=== PATIENT | male | born 1945 | race Caucasian/White ===

== ENCOUNTER 2017-01-03 17:30 | Inpatient (IN) | payer OTHER, MEDICARE ==
[~2017-01-03] VITALS: Ht 172.7 cm; Wt 53.7 kg
[~2017-01-03 17:30] MED LIST: ADVAIR 250/501 DISK IH; ALKA-SELTZER O1 EACH PO; CYMBALTA30 MG PO; DOXYCYCLINE HY100 MG PO; DUONEB 2.5-0.5 M3 ML AEROSOL; FIORICET 50-301 EACH PO; HYCODAN SYRUP480 ML PO; LEVAQUIN750 MG PO; MELATONIN5 M1 PO; MUCINEX FAST-M1 EAC2 PO; OMEGA 3 500 SO1 EACH PO; PREDNISONE10 MG PO; PROAIR HFA8.5 GM IH; RELPAX40 MG PO; SPIRIVA1 INHALATI IH; TAMSULOSIN HCL0.4 MG PO; VALSARTAN40 MG PO; VALSARTAN80 MG PO; VITAMIN D5000 UNIT PO; XANAX0.5 MG PO; ZOFRAN8 MG PO
[2017-01-03 19:11] LABS: BASE EXCESS 1.6 mEq/L (-3 to +3); BICARBONATE 24.4 mEq/L (22-26); CARBOXY HGB 1.6 % (0-5); METHEMOGLOBIN 1.2 % (0-1.5); PCO2 32 mm Hg (35-45); PO2 64 mm Hg (80-100); pH 7.49 (7.35-7.45)
[2017-01-03 19:12] LABS: COMMENTS - BLOOD GASES A+C+; DEVICE RA; SITE LR
[2017-01-03 19:23] LABS: ADD MIUA? YES; BILIRUBIN NEGATIVE; BLOOD SMALL; COLOR STRAW ((YELLOW)); GLUCOSE (STRIP) NEGATIVE; KETONES NEGATIVE; LEUKOCYTES NEGATIVE; NITRITE NEGATIVE; PROTEIN (STRIP) NEGATIVE; SPECIFIC GRAVITY 1.008 (1.000-1.030); UROBILINOGEN 0.2 MG/DL (0.2-1.0)
[2017-01-03 19:26] LABS: BACTERIA RARE /HPF; EPITHELIAL CELLS NONE SEEN /HPF; MUCUS TRACE /LPF; RED BLOOD CELLS 0-5 /HPF (0-5); UCUL ADDED? NO; WHITE BLOOD CELLS 0-5 /HPF (0-5)
[2017-01-03 19:46] LABS: EOSINOPHIL (%) 0 % (0-5); HEMATOCRIT 40.2 % (38.0-50.0); IMMATURE GRANULOCYTE (%) 0.4 % (0.0-0.7); IMMATURE GRANULOCYTE COUNT 0.1 K/uL; INSTRUMENT ABS NEUTROPHIL CT 12.1 K/uL; MCH 25.2 PG (29.0-34.0); MCHC 31.3 G/DL (30.0-36.0); MCV 80.4 FL (86-99); MONOCYTE (%) 6.6 % (3-12); MONOCYTE COUNT 0.9 K/uL (0-0.8); NEUTROPHIL (%) 85.7 % (45-76); NEUTROPHIL COUNT 12.1 K/uL (1.8-6.4); PLATELET COUNT 225 K/uL (156-360); RBC DIS.WIDTH-CV 14.9 % (11.8-14.6); WHITE BLOOD COUNT 14.1 K/uL (4.1-10.2)
[2017-01-03 19:56] LABS: CHLORIDE 102 mEq/L (99-109); SODIUM 138 mEq/L (136-147)
[2017-01-03 19:58] LABS: GLUCOSE 122 mg/dL (70-99)
[2017-01-03 19:59] LABS: ANION GAP 12 MEQ/L (2-14)
[2017-01-03 20:00] LABS: TOTAL BILIRUBIN 0.6 mg/dL (0.0-1.0)
[2017-01-03 20:01] LABS: ALKALINE PHOSPHATASE 66 IU/L (3-129)
[2017-01-03 20:02] LABS: GFR ESTIMATE (CALCULATED) > 59 mL/min/
[2017-01-03 20:03] LABS: UREA NITROGEN (BUN) 15 mg/dL (9-23)
[2017-01-03 20:09] LABS: TROP-I INTERPRETATION NEGATIVE; TROPONIN-I < 0.01 ng/mL (0.0-0.30)
[2017-01-03] MEDS ORDERED: SUMATRIPTAN SUC50 MG PO (21:15)
[2017-01-03 22:00] VITALS: BP 122/81
[2017-01-03 22:30] VITALS: BP 140/83
[2017-01-04 06:48] LABS: EOSINOPHIL (%) 0 % (0-5); HEMATOCRIT 36.6 % (38.0-50.0); IMMATURE GRANULOCYTE (%) 0.5 % (0.0-0.7); IMMATURE GRANULOCYTE COUNT 0.1 K/uL; INSTRUMENT ABS NEUTROPHIL CT 11.3 K/uL; LYMPHOCYTE COUNT 0.6 K/uL (1.0-2.8); MCH 25.3 PG (29.0-34.0); MCHC 31.4 G/DL (30.0-36.0); MCV 80.4 FL (86-99); MONOCYTE (%) 2.8 % (3-12); MONOCYTE COUNT 0.4 K/uL (0-0.8); NEUTROPHIL (%) 91.5 % (45-76); NEUTROPHIL COUNT 11.3 K/uL (1.8-6.4); PLATELET COUNT 206 K/uL (156-360); RBC DIS.WIDTH-CV 15.1 % (11.8-14.6); RBC DIS.WIDTH-SD 43.7 % (39-53); RED BLOOD COUNT 4.55 M/uL (4.00-5.50); WHITE BLOOD COUNT 12.4 K/uL (4.1-10.2)
[2017-01-04 07:12] LABS: ALKALINE PHOSPHATASE 56 IU/L (3-129); ANION GAP 10 MEQ/L (2-14); CHLORIDE 105 MEQ/L (99-109); GFR ESTIMATE (CALCULATED) > 59 mL/min/; GLUCOSE 143 mg/dL (70-99); SAMPLE HEMOLYSIS CHECK 0; SAMPLE ICTERIC CHECK 0; SAMPLE LIPEMIA CHECK 0; SODIUM 141 MEQ/L (136-147); TOTAL BILIRUBIN 0.5 MG/DL (0.0-1.0); UREA NITROGEN (BUN) 14 mg/dL (9-23)
[2017-01-04 08:14] VITALS: BP 105/72
[2017-01-04 08:28] LABS: INTERNAL CONTROL VALID? YES
[2017-01-04 12:27] VITALS: BP 96/65
[2017-01-04 15:16] LABS: INFLUENZA A VIRAL ANTIGEN NEGATIVE; INFLUENZA B VIRAL ANTIGEN NEGATIVE
[2017-01-04 15:17] VITALS: BP 96/51
[2017-01-05] VITALS: BP 107/67
[2017-01-05 07:42] VITALS: BP 125/73
[2017-01-05] MEDS ORDERED: PREDNISONE10 MG PO (09:19)
[2017-01-05] MEDS ORDERED: OMNICEF300 MG PO (09:19)
[2017-01-05] MEDS ORDERED: AZITHROMYCIN500 M1 PO (09:19)
[2017-01-07 17:18] LABS: Mycelial Phase Antibody <1:8 (<1:8); Yeast Phase Anitbody <1:8 (<1:8)
== END 2017-01-05 10:43 | disposition home or self-care (01) | DRG 190 ==
LOC: EME 17:30 → 4SOUTH 20:30 → EDOF 20:30 → 4SOUTH 22:17
PROVIDERS: Emergency Medicine; Internal Medicine
DX: J44.0 Chronic obstructive pulmonary disease with (acute) lower respiratory infection (principal); J18.9 Pneumonia, unspecified organism; J44.1 Chronic obstructive pulmonary disease with (acute) exacerbation; G43.909 Migraine, unspecified, not intractable, without status migrainosus; J45.909 Unspecified asthma, uncomplicated; I10 Essential (primary) hypertension; F32.9 Major depressive disorder, single episode, unspecified; I25.10 Atherosclerotic heart disease of native coronary artery without angina pectoris; Z95.5 Presence of coronary angioplasty implant and graft; K90.0 Celiac disease; Z87.891 Personal history of nicotine dependence
CPT/HCPCS: 36600; 70450; 71020; 80048; 80053; 81003; 82803; 83605; 83880; 84484; 85025; 86001 90; 86698 90; 87040; 87070; 87205; 87449; 87502; 93005; 94640; 94640 76; 99202; 99281; 99285; J0456; J0696; J1644; J2405; J2920; J2930; J3030; J7030; J7040; J7050; S0028

== ENCOUNTER 2017-03-29 02:02 | Emergency (ER) | payer OTHER, MEDICARE ==
[~2017-03-29] VITALS: Ht 172.7 cm; Wt 58.0 kg
[~2017-03-29 02:02] MED LIST changes: +AZITHROMYCIN500 M1 PO; +OMNICEF300 MG PO; +SUMATRIPTAN SUC50 MG PO
[2017-03-29 02:55] LABS: HEMATOCRIT 35.1 % (38.0-50.0); MCH 24.9 PG (29.0-34.0); MCHC 30.8 G/DL (30.0-36.0); MCV 80.9 FL (86-99); MEAN PLAT.VOLUME 9.7 uM^3 (9.0-12.4); PLATELET COUNT 262 K/uL (156-360); RBC DIS.WIDTH-CV 15.8 % (11.8-14.6); RBC DIS.WIDTH-SD 46.6 % (39-53); RED BLOOD COUNT 4.34 M/uL (4.00-5.50); WHITE BLOOD COUNT 8.9 K/uL (4.1-10.2)
[2017-03-29 03:07] LABS: CHLORIDE 102 mEq/L (99-109); POTASSIUM 3.8 mEq/L (3.7-5.4); SODIUM 139 mEq/L (136-147)
[2017-03-29 03:09] LABS: GLUCOSE 122 mg/dL (70-99)
[2017-03-29 03:10] LABS: ANION GAP 9 MEQ/L (2-14)
[2017-03-29 03:11] LABS: TOTAL BILIRUBIN 0.3 mg/dL (0.0-1.0)
[2017-03-29 03:13] LABS: ALKALINE PHOSPHATASE 58 IU/L (3-129); GFR ESTIMATE (CALCULATED) > 59 mL/min/
[2017-03-29 03:14] LABS: UREA NITROGEN (BUN) 26 mg/dL (9-23)
[2017-03-29 03:16] LABS: LIPASE 278 U/L (1.0-51.0)
[2017-03-29 03:45] LABS: ADD MIUA? YES; BILIRUBIN NEGATIVE; BLOOD LARGE; COLOR YELLOW ((YELLOW)); GLUCOSE (STRIP) NEGATIVE; KETONES NEGATIVE; LEUKOCYTES NEGATIVE; NITRITE NEGATIVE; PROTEIN (STRIP) NEGATIVE; SPECIFIC GRAVITY 1.013 (1.000-1.030); UROBILINOGEN 0.2 MG/DL (0.2-1.0)
[2017-03-29 03:54] LABS: BACTERIA NONE SEEN /HPF; EPITHELIAL CELLS NONE SEEN /HPF; MUCUS TRACE /LPF; RED BLOOD CELLS TNTC /HPF (0-5); UCUL ADDED? NO; WHITE BLOOD CELLS 0-5 /HPF (0-5)
[2017-03-29] MEDS ORDERED: FLOMAX0.4 MG PO (04:02)
[2017-03-29] MEDS ORDERED: CIPRO500 MG PO (04:02)
[2017-03-29] MEDS ORDERED: ZOFRAN8 MG PO (04:02)
[2017-03-29] MEDS ORDERED: PROMETHAZINE HC25 M1 PO (05:23)
[2017-03-29 05:26] VITALS: BP 141/89
== END 2017-03-29 05:27 | disposition home or self-care (01) ==
LOC: EME 02:02
PROVIDERS: Emergency Medicine
DX: N41.9 Inflammatory disease of prostate, unspecified (principal); R31.9 Hematuria, unspecified; K80.20 Calculus of gallbladder without cholecystitis without obstruction; D64.9 Anemia, unspecified; I10 Essential (primary) hypertension; J45.909 Unspecified asthma, uncomplicated; F32.9 Major depressive disorder, single episode, unspecified; Z95.1 Presence of aortocoronary bypass graft; Z88.6 Allergy status to analgesic agent; Z87.891 Personal history of nicotine dependence
CPT/HCPCS: 74176; 76705; 80053; 81003; 83605; 83690; 85027; 99281; 99284; J2270; J2405; J7030

== ENCOUNTER 2017-06-26 20:45 | Inpatient (IN) | payer OTHER, MEDICARE ==
[~2017-06-26] VITALS: Ht 175.3 cm; Wt 51.0 kg
[~2017-06-26 20:45] MED LIST changes: +CIPRO500 MG PO; +FLOMAX0.4 MG PO; +PROMETHAZINE HC25 M1 PO
[2017-06-26 21:31] LABS: HEMATOCRIT 39.6 % (38.0-50.0); MCH 24.7 PG (29.0-34.0); MCHC 31.1 G/DL (30.0-36.0); MCV 79.7 FL (86-99); MEAN PLAT.VOLUME 9.7 uM^3 (9.0-12.4); PLATELET COUNT 203 K/uL (156-360); RBC DIS.WIDTH-CV 18.9 % (11.8-14.6); RBC DIS.WIDTH-SD 53.6 % (39-53); RED BLOOD COUNT 4.97 M/uL (4.00-5.50); WHITE BLOOD COUNT 8.3 K/uL (4.1-10.2)
[2017-06-26 21:39] LABS: CHLORIDE 107 mEq/L (99-109); POTASSIUM 4.1 mEq/L (3.7-5.4); SODIUM 145 mEq/L (136-147)
[2017-06-26 21:41] LABS: GLUCOSE 117 mg/dL (70-99)
[2017-06-26 21:43] LABS: ANION GAP 13 MEQ/L (2-14)
[2017-06-26 21:45] LABS: GFR ESTIMATE (CALCULATED) > 59 mL/min/
[2017-06-26 21:46] LABS: UREA NITROGEN (BUN) 17 mg/dL (9-23)
[2017-06-26 21:53] LABS: TROP-I INTERPRETATION NEGATIVE; TROPONIN-I < 0.01 ng/mL (0.0-0.30)
[2017-06-26] MEDS ORDERED: FLOMAX0.4 MG PO (23:29)
[2017-06-26] MEDS ORDERED: PREDNISONE5 MG PO (23:30)
[2017-06-27] VITALS (7 sets, daily range): BP systolic 80–172; BP diastolic 53–103
[2017-06-27 07:34] LABS: PROTHROMBIN TIME 11.4 SEC (10.2-12.9)
[2017-06-27 07:37] LABS: PTT 30.3 SEC (25-37)
[2017-06-27 09:38] LABS: HEMATOCRIT 40.3 % (38.0-50.0); MCH 25.5 PG (29.0-34.0); MCHC 31.5 G/DL (30.0-36.0); MCV 80.9 FL (86-99); MEAN PLAT.VOLUME 10.4 uM^3 (9.0-12.4); PLATELET COUNT 212 K/uL (156-360); RBC DIS.WIDTH-CV 19.5 % (11.8-14.6); RBC DIS.WIDTH-SD 55.8 % (39-53); RED BLOOD COUNT 4.98 M/uL (4.00-5.50); WHITE BLOOD COUNT 9.8 K/uL (4.1-10.2)
[2017-06-27 09:47] LABS: ANION GAP 9 MEQ/L (2-14); CHLORIDE 104 MEQ/L (99-109); GFR ESTIMATE (CALCULATED) > 59 mL/min/; GLUCOSE 106 mg/dL (70-99); POTASSIUM 4.3 MEQ/L (3.7-5.4); SAMPLE HEMOLYSIS CHECK 0; SAMPLE ICTERIC CHECK 0; SAMPLE LIPEMIA CHECK 0; SODIUM 143 MEQ/L (136-147); UREA NITROGEN (BUN) 12 mg/dL (9-23)
[2017-06-28] VITALS (7 sets, daily range): BP systolic 92–155; BP diastolic 62–89
[2017-06-28 05:04] LABS: HEMATOCRIT 41.2 % (38.0-50.0); MCH 24.2 PG (29.0-34.0); MCHC 31.1 G/DL (30.0-36.0); MCV 77.9 FL (86-99); MEAN PLAT.VOLUME 9.8 uM^3 (9.0-12.4); PLATELET COUNT 194 K/uL (156-360); RBC DIS.WIDTH-CV 18.6 % (11.8-14.6); RBC DIS.WIDTH-SD 50.8 % (39-53); RED BLOOD COUNT 5.29 M/uL (4.00-5.50); WHITE BLOOD COUNT 10.1 K/uL (4.1-10.2)
[2017-06-28 05:29] LABS: ANION GAP 13 MEQ/L (2-14); CHLORIDE 100 MEQ/L (99-109); GFR ESTIMATE (CALCULATED) > 59 mL/min/; GLUCOSE 138 mg/dL (70-99); POTASSIUM 4.3 MEQ/L (3.7-5.4); SAMPLE HEMOLYSIS CHECK 0; SAMPLE ICTERIC CHECK 0; SAMPLE LIPEMIA CHECK 0; SODIUM 139 MEQ/L (136-147); UREA NITROGEN (BUN) 20 mg/dL (9-23)
[2017-06-29 05:56] VITALS: BP 112/72
[2017-06-29 07:15] VITALS: BP 113/75
[2017-06-29 07:21] LABS: MCH 25.7 PG (29.0-34.0); MCHC 32.6 G/DL (30.0-36.0); MCV 78.9 FL (86-99); MEAN PLAT.VOLUME 10.7 uM^3 (9.0-12.4); PLATELET COUNT 215 K/uL (156-360); RBC DIS.WIDTH-CV 18.8 % (11.8-14.6); RBC DIS.WIDTH-SD 51.7 % (39-53); RED BLOOD COUNT 4.94 M/uL (4.00-5.50); WHITE BLOOD COUNT 13.1 K/uL (4.1-10.2)
[2017-06-29 07:45] LABS: ANION GAP 10 MEQ/L (2-14); CHLORIDE 96 MEQ/L (99-109); GFR ESTIMATE (CALCULATED) > 59 mL/min/; GLUCOSE 112 mg/dL (70-99); POTASSIUM 4.4 MEQ/L (3.7-5.4); SAMPLE HEMOLYSIS CHECK 0; SAMPLE ICTERIC CHECK 0; SAMPLE LIPEMIA CHECK 0; SODIUM 138 MEQ/L (136-147); UREA NITROGEN (BUN) 32 mg/dL (9-23)
[2017-06-29 07:51] LABS: EOSINOPHIL (%) 0 % (0-5); IMMATURE GRANULOCYTE (%) 0.6 % (0.0-0.7); IMMATURE GRANULOCYTE COUNT 0.1 K/uL; INSTRUMENT ABS NEUTROPHIL CT 11.1 K/uL; LYMPHOCYTE COUNT 1.2 K/uL (1.0-2.8); MONOCYTE (%) 5.7 % (3-12); MONOCYTE COUNT 0.8 K/uL (0-0.8); NEUTROPHIL (%) 84.5 % (45-76); NEUTROPHIL COUNT 11.1 K/uL (1.8-6.4)
[2017-06-29 11:54] VITALS: BP 100/66
[2017-06-29 15:50] VITALS: BP 100/71
[2017-06-29 19:16] VITALS: BP 132/77
[2017-06-29 23:13] VITALS: BP 125/70
[2017-06-30 05:30] VITALS: BP 129/82
[2017-06-30 06:23] LABS: EOSINOPHIL (%) 0.1 % (0-5); HEMATOCRIT 40.1 % (38.0-50.0); IMMATURE GRANULOCYTE (%) 0.9 % (0.0-0.7); IMMATURE GRANULOCYTE COUNT 0.1 K/uL; INSTRUMENT ABS NEUTROPHIL CT 7.7 K/uL; LYMPHOCYTE COUNT 0.8 K/uL (1.0-2.8); MCH 25.1 PG (29.0-34.0); MCHC 32.2 G/DL (30.0-36.0); MCV 78.2 FL (86-99); MONOCYTE (%) 7.6 % (3-12); MONOCYTE COUNT 0.7 K/uL (0-0.8); NEUTROPHIL (%) 82.4 % (45-76); NEUTROPHIL COUNT 7.7 K/uL (1.8-6.4); PLATELET COUNT 231 K/uL (156-360); RBC DIS.WIDTH-CV 18.6 % (11.8-14.6); RBC DIS.WIDTH-SD 51.3 % (39-53); RED BLOOD COUNT 5.13 M/uL (4.00-5.50); WHITE BLOOD COUNT 9.3 K/uL (4.1-10.2)
[2017-06-30 06:45] LABS: ANION GAP 11 MEQ/L (2-14); CHLORIDE 96 MEQ/L (99-109); GFR ESTIMATE (CALCULATED) > 59 mL/min/; GLUCOSE 113 mg/dL (70-99); SAMPLE HEMOLYSIS CHECK 0; SAMPLE ICTERIC CHECK 0; SAMPLE LIPEMIA CHECK 0; SODIUM 134 MEQ/L (136-147); UREA NITROGEN (BUN) 31 mg/dL (9-23)
[2017-06-30 07:28] VITALS: BP 132/87
[2017-06-30 11:49] VITALS: BP 102/65
[2017-06-30 15:30] VITALS: BP 90/65
[2017-06-30 19:36] VITALS: BP 118/70
[2017-06-30 22:50] VITALS: BP 119/59
[2017-07-01 03:34] VITALS: BP 91/63
[2017-07-01 06:23] LABS: ANION GAP 10 MEQ/L (2-14); CHLORIDE 98 MEQ/L (99-109); GFR ESTIMATE (CALCULATED) > 59 mL/min/; GLUCOSE 114 mg/dL (70-99); POTASSIUM 4.5 MEQ/L (3.7-5.4); SAMPLE HEMOLYSIS CHECK 0; SAMPLE ICTERIC CHECK 0; SAMPLE LIPEMIA CHECK 0; SODIUM 135 MEQ/L (136-147); UREA NITROGEN (BUN) 34 mg/dL (9-23)
[2017-07-01 06:25] LABS: EOSINOPHIL (%) 0 % (0-5); HEMATOCRIT 33.4 % (38.0-50.0); IMMATURE GRANULOCYTE (%) 0.5 % (0.0-0.7); INSTRUMENT ABS NEUTROPHIL CT 6.9 K/uL; LYMPHOCYTE COUNT 0.9 K/uL (1.0-2.8); MCH 24.8 PG (29.0-34.0); MCHC 31.7 G/DL (30.0-36.0); MEAN PLAT.VOLUME 10.3 uM^3 (9.0-12.4); MONOCYTE (%) 8.5 % (3-12); MONOCYTE COUNT 0.7 K/uL (0-0.8); NEUTROPHIL (%) 79.9 % (45-76); NEUTROPHIL COUNT 6.9 K/uL (1.8-6.4); PLATELET COUNT 211 K/uL (156-360); RBC DIS.WIDTH-SD 50.5 % (39-53); RED BLOOD COUNT 4.28 M/uL (4.00-5.50); WHITE BLOOD COUNT 8.6 K/uL (4.1-10.2)
[2017-07-01 07:30] VITALS: BP 110/69
[2017-07-01 11:01] VITALS: BP 110/64
[2017-07-01 16:20] VITALS: BP 109/72
[2017-07-01 19:30] VITALS: BP 100/66
[2017-07-01 23:59] VITALS: BP 115/77
[2017-07-02 04:03] VITALS: BP 98/68
[2017-07-02 05:36] LABS: EOSINOPHIL (%) 0 % (0-5); HEMATOCRIT 33.7 % (38.0-50.0); IMMATURE GRANULOCYTE (%) 0.3 % (0.0-0.7); INSTRUMENT ABS NEUTROPHIL CT 5.2 K/uL; LYMPHOCYTE COUNT 0.8 K/uL (1.0-2.8); MCH 24.6 PG (29.0-34.0); MCHC 31.5 G/DL (30.0-36.0); MCV 78.2 FL (86-99); MEAN PLAT.VOLUME 10.4 uM^3 (9.0-12.4); MONOCYTE (%) 10.8 % (3-12); MONOCYTE COUNT 0.7 K/uL (0-0.8); NEUTROPHIL (%) 77.4 % (45-76); NEUTROPHIL COUNT 5.2 K/uL (1.8-6.4); PLATELET COUNT 239 K/uL (156-360); RBC DIS.WIDTH-CV 17.8 % (11.8-14.6); RBC DIS.WIDTH-SD 50.6 % (39-53); RED BLOOD COUNT 4.31 M/uL (4.00-5.50); WHITE BLOOD COUNT 6.7 K/uL (4.1-10.2)
[2017-07-02 06:06] LABS: ANION GAP 11 MEQ/L (2-14); CHLORIDE 95 MEQ/L (99-109); GFR ESTIMATE (CALCULATED) > 59 mL/min/; GLUCOSE 100 mg/dL (70-99); POTASSIUM 3.8 MEQ/L (3.7-5.4); SAMPLE HEMOLYSIS CHECK 0; SAMPLE ICTERIC CHECK 0; SAMPLE LIPEMIA CHECK 0; SODIUM 133 MEQ/L (136-147); UREA NITROGEN (BUN) 28 mg/dL (9-23)
[2017-07-02 07:30] VITALS: BP 100/68
[2017-07-02 09:05] LABS: BILIRUBIN NEGATIVE; BLOOD NEGATIVE; COLOR YELLOW ((YELLOW)); GLUCOSE (STRIP) NEGATIVE; KETONES NEGATIVE; LEUKOCYTES NEGATIVE; NITRITE NEGATIVE; PROTEIN (STRIP) NEGATIVE; SPECIFIC GRAVITY 1.021 (1.000-1.030); UROBILINOGEN 0.2 MG/DL (0.2-1.0)
[2017-07-02 09:06] LABS: ADD MIUA? NO; UCUL ADDED? NO
[2017-07-02 11:30] VITALS: BP 114/66
[2017-07-02 15:30] VITALS: BP 113/79
[2017-07-02 19:10] VITALS: BP 122/76
[2017-07-02 23:39] VITALS: BP 118/81
[2017-07-03 05:02] VITALS: BP 127/79
[2017-07-03 05:08] LABS: HEMATOCRIT 34.6 % (38.0-50.0); MCH 25.8 PG (29.0-34.0); MCHC 32.7 G/DL (30.0-36.0); MEAN PLAT.VOLUME 10.8 uM^3 (9.0-12.4); PLATELET COUNT 261 K/uL (156-360); RBC DIS.WIDTH-CV 17.9 % (11.8-14.6); RBC DIS.WIDTH-SD 50.9 % (39-53); RED BLOOD COUNT 4.38 M/uL (4.00-5.50); WHITE BLOOD COUNT 7.7 K/uL (4.1-10.2)
[2017-07-03 05:40] LABS: ANION GAP 12 MEQ/L (2-14); CHLORIDE 98 MEQ/L (99-109); GFR ESTIMATE (CALCULATED) > 59 mL/min/; GLUCOSE 98 mg/dL (70-99); POTASSIUM 4.3 MEQ/L (3.7-5.4); SAMPLE HEMOLYSIS CHECK 0; SAMPLE ICTERIC CHECK 0; SAMPLE LIPEMIA CHECK 0; SODIUM 136 MEQ/L (136-147); UREA NITROGEN (BUN) 25 mg/dL (9-23)
[2017-07-03 07:27] VITALS: BP 124/83
[2017-07-03 11:11] VITALS: BP 109/76
[2017-07-03 13:00] LABS: MAGNESIUM 2.2 mg/dl (1.3-2.7)
[2017-07-03 14:15] LABS: TROP-I INTERPRETATION NEGATIVE; TROPONIN-I 0.07 ng/mL (0.0-0.30)
[2017-07-03 16:30] VITALS: BP 104/63
[2017-07-03 18:34] LABS: TROP-I INTERPRETATION NEGATIVE; TROPONIN-I 0.06 ng/mL (0.0-0.30)
[2017-07-03 20:10] VITALS: BP 117/77
[2017-07-04 00:45] VITALS: BP 100/69
[2017-07-04 01:01] LABS: TROP-I INTERPRETATION NEGATIVE; TROPONIN-I 0.06 ng/mL (0.0-0.30)
[2017-07-04 04:49] VITALS: BP 120/80
[2017-07-04 08:30] VITALS: BP 132/89
[2017-07-04] MEDS ORDERED: ATROVENT 00.5 MG/2.5 IH (10:19)
[2017-07-04] MEDS ORDERED: METOPROLOL SUCC25 MG PO (10:19)
[2017-07-04] MEDS ORDERED: LEVALBUTER1.25 MG/3 IH (10:19)
[2017-07-04] MEDS ORDERED: TRAMADOL HCL50 MG PO (11:09)
== END 2017-07-04 12:53 | disposition home health service (06) | DRG 199 ==
LOC: EME 20:45 → EDOF 06-27 01:56 → 4EAST 06-27 01:56 → ENRESERV 06-27 01:57 → 4EAST 06-27 03:23 → ENPENDDIS 07-04 → 4EAST 07-04 12:53
PROVIDERS: Emergency Medicine; Hospitalist; Internal Medicine; Physician Assistant; Radiology Diagnostic Radiology
PROC: 0W9930Z Drainage of Right Pleural Cavity with Drainage Device, Percutaneous Approach (ICD-10-PCS; principal; 2017-06-27)
DX: S27.0XXA Traumatic pneumothorax, initial encounter (principal); J15.9 Unspecified bacterial pneumonia; S22.41XA Multiple fractures of ribs, right side, initial encounter for closed fracture; Z68.1 Body mass index [BMI] 19.9 or less, adult; R64 Cachexia; W01.0XXA Fall on same level from slipping, tripping and stumbling without subsequent striking against object, initial encounter; J98.11 Atelectasis; J44.0 Chronic obstructive pulmonary disease with (acute) lower respiratory infection; R29.6 Repeated falls; I49.3 Ventricular premature depolarization; K59.00 Constipation, unspecified; I71.2 Thoracic aortic aneurysm, without rupture; I73.9 Peripheral vascular disease, unspecified; I25.10 Atherosclerotic heart disease of native coronary artery without angina pectoris; I10 Essential (primary) hypertension; G43.909 Migraine, unspecified, not intractable, without status migrainosus; Z86.79 Personal history of other diseases of the circulatory system; Z98.62 Peripheral vascular angioplasty status; Z87.891 Personal history of nicotine dependence; Z87.01 Personal history of pneumonia (recurrent)
CPT/HCPCS: 32557; 70450; 71010; 71020; 71250; 80048; 81003; 83735; 84484; 85025; 85027; 85610; 85730; 93005; 94010; 94640; 94640 76; 94667; 94668; 94799; 97530 GO; 99202; 99281; 99285; C1729; C1769; J1170; J1200; J1644; J2270; J2765; J3010; J7030; J7512

== ENCOUNTER 2017-07-06 11:00 | Inpatient (IN) | payer OTHER, MEDICARE ==
[~2017-07-06] VITALS: Ht 172.7 cm; Wt 50.1 kg
[~2017-07-06 11:00] MED LIST changes: +ATROVENT 00.5 MG/2.5 IH; +LEVALBUTER1.25 MG/3 IH; +METOPROLOL SUCC25 MG PO; +PREDNISONE5 MG PO; +TRAMADOL HCL50 MG PO
[2017-07-06 11:41] LABS: HEMATOCRIT 34.2 % (38.0-50.0); MCH 24.7 PG (29.0-34.0); MCHC 31.6 G/DL (30.0-36.0); MCV 78.3 FL (86-99); MEAN PLAT.VOLUME 9.5 uM^3 (9.0-12.4); RBC DIS.WIDTH-CV 17.6 % (11.8-14.6); RBC DIS.WIDTH-SD 49.9 % (39-53); RED BLOOD COUNT 4.37 M/uL (4.00-5.50); WHITE BLOOD COUNT 15.1 K/uL (4.1-10.2)
[2017-07-06 11:43] LABS: PLATELET COUNT 427 K/uL (156-360)
[2017-07-06 11:46] LABS: CHLORIDE 104 mEq/L (99-109); POTASSIUM 3.9 mEq/L (3.7-5.4); SODIUM 138 mEq/L (136-147)
[2017-07-06 11:48] LABS: GLUCOSE 102 mg/dL (70-99)
[2017-07-06 11:49] LABS: ANION GAP 7 MEQ/L (2-14)
[2017-07-06 11:52] LABS: GFR ESTIMATE (CALCULATED) > 59 mL/min/
[2017-07-06 11:53] LABS: UREA NITROGEN (BUN) 20 mg/dL (9-23)
[2017-07-06 11:54] LABS: CREATINE KINASE 21 IU/L (1-294)
[2017-07-06 12:56] LABS: BILIRUBIN NEGATIVE; BLOOD NEGATIVE; COLOR YELLOW ((YELLOW)); GLUCOSE (STRIP) NEGATIVE; KETONES NEGATIVE; LEUKOCYTES NEGATIVE; NITRITE NEGATIVE; PROTEIN (STRIP) NEGATIVE; UROBILINOGEN 0.2 MG/DL (0.2-1.0)
[2017-07-06 13:01] LABS: ADD MIUA? NO
[2017-07-06 16:09] VITALS: BP 107/71
[2017-07-06 19:19] VITALS: BP 116/75
[2017-07-06 23:32] VITALS: BP 123/76
[2017-07-07 00:05] LABS: TROP-I INTERPRETATION NEGATIVE; TROPONIN-I 0.02 ng/mL (0.0-0.30)
[2017-07-07 04:22] VITALS: BP 125/78
[2017-07-07 07:30] LABS: TROP-I INTERPRETATION NEGATIVE; TROPONIN-I 0.01 ng/mL (0.0-0.30)
[2017-07-07 07:39] LABS: ALKALINE PHOSPHATASE 79 IU/L (3-129); ANION GAP 10 MEQ/L (2-14); CHLORIDE 97 MEQ/L (99-109); GFR ESTIMATE (CALCULATED) > 59 mL/min/; GLUCOSE 107 mg/dL (70-99); POTASSIUM 4.5 MEQ/L (3.7-5.4); SAMPLE HEMOLYSIS CHECK 0; SAMPLE ICTERIC CHECK 0; SAMPLE LIPEMIA CHECK 0; SODIUM 135 MEQ/L (136-147); TOTAL BILIRUBIN 0.5 MG/DL (0.0-1.0); UREA NITROGEN (BUN) 18 mg/dL (9-23)
[2017-07-07 07:42] VITALS: BP 120/80
[2017-07-07 17:59] VITALS: BP 114/66
[2017-07-07 20:19] VITALS: BP 105/67
[2017-07-07 23:54] VITALS: BP 114/70
[2017-07-08 04:12] VITALS: BP 113/71
[2017-07-08 06:48] LABS: MCV 79.8 FL (86-99)
[2017-07-08 08:20] VITALS: BP 112/73
[2017-07-08 08:30] LABS: MCH 26.3 PG (29.0-34.0); MCHC 32.6 G/DL (30.0-36.0); MEAN PLAT.VOLUME 10.3 uM^3 (9.0-12.4); PLATELET COUNT 492 K/uL (156-360); RBC DIS.WIDTH-CV 18.4 % (11.8-14.6); RBC DIS.WIDTH-SD 53.1 % (39-53); WHITE BLOOD COUNT 13.9 K/uL (4.1-10.2)
[2017-07-08 08:33] LABS: ANION GAP 10 MEQ/L (2-14); CHLORIDE 101 MEQ/L (99-109); POTASSIUM 5.1 MEQ/L (3.7-5.4); SAMPLE HEMOLYSIS CHECK 1; SAMPLE ICTERIC CHECK 0; SAMPLE LIPEMIA CHECK 0; SODIUM 138 MEQ/L (136-147)
[2017-07-08 08:38] LABS: GFR ESTIMATE (CALCULATED) > 59 mL/min/; GLUCOSE 155 mg/dL (70-99); UREA NITROGEN (BUN) 18 mg/dL (9-23)
[2017-07-08 10:40] LABS: INTERNAL CONTROL VALID? YES
[2017-07-08 16:00] VITALS: BP 102/68
[2017-07-08 20:53] VITALS: BP 105/70
[2017-07-09] VITALS (7 sets, daily range): BP systolic 109–133; BP diastolic 71–86
[2017-07-09 06:42] LABS: HEMATOCRIT 29.3 % (38.0-50.0); MCV 79.8 FL (86-99)
[2017-07-10 03:29] VITALS: BP 136/86
[2017-07-10 06:34] LABS: HEMATOCRIT 33.3 % (38.0-50.0); MCH 24.6 PG (29.0-34.0); MCHC 30.3 G/DL (30.0-36.0); MCV 81.2 FL (86-99); MEAN PLAT.VOLUME 9.8 uM^3 (9.0-12.4); RBC DIS.WIDTH-CV 18.4 % (11.8-14.6); RBC DIS.WIDTH-SD 53.2 % (39-53); WHITE BLOOD COUNT 11.1 K/uL (4.1-10.2)
[2017-07-10 06:36] LABS: PLATELET COUNT 652 K/uL (156-360)
[2017-07-10 06:42] LABS: GFR ESTIMATE (CALCULATED) > 59 mL/min/; UREA NITROGEN (BUN) 19 mg/dL (9-23)
[2017-07-10 06:46] LABS: ANION GAP 6 MEQ/L (2-14); CHLORIDE 98 MEQ/L (99-109); GFR ESTIMATE (CALCULATED) > 59 mL/min/; POTASSIUM 4.7 MEQ/L (3.7-5.4); SAMPLE HEMOLYSIS CHECK 0; SAMPLE ICTERIC CHECK 0; SAMPLE LIPEMIA CHECK 0; SODIUM 139 MEQ/L (136-147); UREA NITROGEN (BUN) 19 mg/dL (9-23)
[2017-07-10 06:48] LABS: GLUCOSE 78 mg/dL (70-99)
[2017-07-10 07:33] VITALS: BP 135/91
[2017-07-10 11:42] VITALS: BP 114/75
[2017-07-10 15:31] VITALS: BP 103/50
[2017-07-10 19:27] VITALS: BP 105/69
[2017-07-10 23:38] VITALS: BP 121/82
[2017-07-11 03:28] VITALS: BP 131/95
[2017-07-11 06:39] LABS: HEMATOCRIT 31.5 % (38.0-50.0); MCH 26.1 PG (29.0-34.0); MCHC 32.4 G/DL (30.0-36.0); MCV 80.6 FL (86-99); MEAN PLAT.VOLUME 9.9 uM^3 (9.0-12.4); PLATELET COUNT 603 K/uL (156-360); RBC DIS.WIDTH-CV 18.6 % (11.8-14.6); RED BLOOD COUNT 3.91 M/uL (4.00-5.50); WHITE BLOOD COUNT 11.8 K/uL (4.1-10.2)
[2017-07-11 07:06] LABS: ANION GAP 9 MEQ/L (2-14); CHLORIDE 99 MEQ/L (99-109); GFR ESTIMATE (CALCULATED) > 59 mL/min/; GLUCOSE 80 mg/dL (70-99); POTASSIUM 4.4 MEQ/L (3.7-5.4); SAMPLE HEMOLYSIS CHECK 0; SAMPLE ICTERIC CHECK 0; SAMPLE LIPEMIA CHECK 0; SODIUM 139 MEQ/L (136-147); UREA NITROGEN (BUN) 19 mg/dL (9-23)
[2017-07-11 08:43] VITALS: BP 124/83
[2017-07-11] MEDS ORDERED: LOVENOX40 MG/0.4 SC (10:13)
[2017-07-11] MEDS ORDERED: THERAGRAN1 TABLET PO (10:13)
[2017-07-11] MEDS ORDERED: PREDNISONE10 MG PO (10:13)
[2017-07-11] MEDS ORDERED: MYCOSTATIN 100,60 ML PO (10:13)
[2017-07-11] MEDS ORDERED: FLORASTOR250 MG PO (10:13)
[2017-07-11] MEDS ORDERED: LIDOCAINE20 MG/1 M5 PO (10:50)
[2017-07-11] MEDS ORDERED: AUGMENTIN875 MG PO (12:03)
[2017-07-11 12:12] VITALS: BP 93/64
== END 2017-07-11 14:26 | disposition home health service (06) | DRG 480 ==
LOC: EME → EDBD 11:00 → EME 11:00 → 3EAST 14:05 → EDOF 14:05 → ENRESERV 14:07 → EDOF 14:16 → ENRESERV 14:46 → 3EAST 15:11
PROVIDERS: Hospitalist; Internal Medicine; Internal Medicine Cardiovascular Disease; Orthopaedic Surgery; Physician Assistant
PROC: 0QH606Z Insertion of Intramedullary Internal Fixation Device into Right Upper Femur, Open Approach (ICD-10-PCS; principal; 2017-07-07)
DX: S72.144A Nondisplaced intertrochanteric fracture of right femur, initial encounter for closed fracture (principal); E44.0 Moderate protein-calorie malnutrition; J44.1 Chronic obstructive pulmonary disease with (acute) exacerbation; J69.0 Pneumonitis due to inhalation of food and vomit; D64.89 Other specified anemias; I10 Essential (primary) hypertension; I71.2 Thoracic aortic aneurysm, without rupture; I73.9 Peripheral vascular disease, unspecified; J98.11 Atelectasis; K21.9 Gastro-esophageal reflux disease without esophagitis; K90.0 Celiac disease; R13.10 Dysphagia, unspecified; W18.30XA Fall on same level, unspecified, initial encounter; Y92.009 Unspecified place in unspecified non-institutional (private) residence as the place of occurrence of the external cause; Z91.81 History of falling; Z68.1 Body mass index [BMI] 19.9 or less, adult; Z87.891 Personal history of nicotine dependence; Z95.1 Presence of aortocoronary bypass graft; Z87.01 Personal history of pneumonia (recurrent)
CPT/HCPCS: 71010; 71020; 71275; 73502; 76000; 80048; 80053; 80200; 80202; 81003; 82550; 82565; 84484; 84520; 85014; 85018; 85027; 85730; 86850; 86900; 86901; 87040; 87070; 87205; 87449; 87651 90; 92526 GN; 92610 GN; 93005; 93970; 94010; 94640; 94640 76; 94667; 94668; 94760; 94799; 97530 GO; 99202; 99281; 99285; C1713; J0295; J0690; J0692; J1650; J2250; J2270; J2405; J2704; J2930; J3010; J3260; J3370; J7030; J7050; J7120; J7512

== ENCOUNTER 2017-07-26 13:21 | Inpatient (IN) | payer OTHER, MEDICARE ==
[~2017-07-26] VITALS: Ht 172.7 cm; Wt 46.7 kg
[~2017-07-26 13:21] MED LIST changes: +AUGMENTIN875 MG PO; +FLORASTOR250 MG PO; +LIDOCAINE20 MG/1 M5 PO; +LOVENOX40 MG/0.4 SC; +MYCOSTATIN 100,60 ML PO; +THERAGRAN1 TABLET PO
[2017-07-26 13:57] LABS: BILIRUBIN NEGATIVE; BLOOD NEGATIVE; COLOR YELLOW ((YELLOW)); GLUCOSE (STRIP) NEGATIVE; KETONES NEGATIVE; LEUKOCYTES NEGATIVE; NITRITE NEGATIVE; PROTEIN (STRIP) NEGATIVE; SPECIFIC GRAVITY 1.024 (1.000-1.030); UROBILINOGEN 0.2 MG/DL (0.2-1.0)
[2017-07-26 13:59] LABS: ADD MIUA? NO
[2017-07-26 14:15] LABS: CHLORIDE 105 mEq/L (99-109); POTASSIUM 3.7 mEq/L (3.7-5.4); SODIUM 143 mEq/L (136-147)
[2017-07-26 14:16] LABS: HEMATOCRIT 37.6 % (38.0-50.0); MCH 25.7 PG (29.0-34.0); MCHC 30.6 G/DL (30.0-36.0); MCV 83.9 FL (86-99); RBC DIS.WIDTH-CV 20.1 % (11.8-14.6); RBC DIS.WIDTH-SD 60.7 % (39-53); RED BLOOD COUNT 4.48 M/uL (4.00-5.50); WHITE BLOOD COUNT 9.1 K/uL (4.1-10.2)
[2017-07-26 14:17] LABS: GLUCOSE 96 mg/dL (70-99)
[2017-07-26 14:18] LABS: ANION GAP 14 MEQ/L (2-14)
[2017-07-26 14:21] LABS: GFR ESTIMATE (CALCULATED) > 59 mL/min/
[2017-07-26 14:22] LABS: UREA NITROGEN (BUN) 15 mg/dL (9-23)
[2017-07-26 15:02] LABS: PLAT.SUFFICIENCY ADEQUATE; PLATELET COUNT 357 K/uL (156-360)
[2017-07-26 15:54] LABS: UCUL ADDED? NO
[2017-07-26] MEDS ORDERED: PROAIR HFA8.5 GM IH (19:32)
[2017-07-26] MEDS ORDERED: ENDOCET 5-3251 EACH PO (19:33)
[2017-07-26] MEDS ORDERED: PROMETHAZINE HC25 M1 PO (19:34)
[2017-07-26 20:56] LABS: BASOPHIL COUNT 0.1 K/uL (0-0.1); EOSINOPHIL (%) 3.6 % (0-5); EOSINOPHIL COUNT 0.3 K/uL (0-0.3); IMMATURE GRANULOCYTE (%) 0.3 % (0.0-0.7); INSTRUMENT ABS NEUTROPHIL CT 6.7 K/uL; LYMPHOCYTE COUNT 1.4 K/uL (1.0-2.8); MONOCYTE (%) 5.2 % (3-12); MONOCYTE COUNT 0.5 K/uL (0-0.8); NEUTROPHIL (%) 74.5 % (45-76); NEUTROPHIL COUNT 6.7 K/uL (1.8-6.4)
[2017-07-26 22:46] VITALS: BP 101/68
[2017-07-27 07:32] VITALS: BP 110/70
[2017-07-27 16:42] VITALS: BP 112/68
[2017-07-27 22:46] VITALS: BP 121/57
[2017-07-28 07:22] VITALS: BP 130/85
[2017-07-28 17:44] VITALS: BP 109/68
[2017-07-28 22:48] VITALS: BP 128/78
[2017-07-29 08:12] VITALS: BP 119/74
[2017-07-29] MEDS ORDERED: CEFTIN500 MG PO (11:48)
[2017-07-29] MEDS ORDERED: PREDNISONE10 MG PO (11:48)
== END 2017-07-29 13:56 | disposition home or self-care (01) | DRG 177 ==
LOC: EME 13:21 → EDOF 19:45 → 5EAST 19:45 → ENRESERV 19:48 → 5EAST 22:38 → ENPENDDIS 07-29 → 5EAST 07-29 13:56
DX: J69.0 Pneumonitis due to inhalation of food and vomit (principal); J44.1 Chronic obstructive pulmonary disease with (acute) exacerbation; E43 Unspecified severe protein-calorie malnutrition; I27.81 Cor pulmonale (chronic); D64.9 Anemia, unspecified; I10 Essential (primary) hypertension; F32.9 Major depressive disorder, single episode, unspecified; I71.2 Thoracic aortic aneurysm, without rupture; K90.0 Celiac disease; M25.552 Pain in left hip; M54.9 Dorsalgia, unspecified; R10.9 Unspecified abdominal pain; R13.10 Dysphagia, unspecified; F41.9 Anxiety disorder, unspecified; R29.6 Repeated falls; Z91.11 Patient's noncompliance with dietary regimen; Z68.1 Body mass index [BMI] 19.9 or less, adult; Z86.711 Personal history of pulmonary embolism; Z87.891 Personal history of nicotine dependence; Z91.19 Patient's noncompliance with other medical treatment and regimen; Z99.81 Dependence on supplemental oxygen; Z88.5 Allergy status to narcotic agent
CPT/HCPCS: 71010; 71020; 71275; 74177; 74230; 80048; 81003; 83605; 85025; 85027; 87040; 92611 GN; 94640; 94640 76; 94799; 99202; 99281; 99283; J0295; J1956; J2920; J7050

== ENCOUNTER → 2017-10-23 | Outpatient (CLI) | payer MEDICARE ==
[~2017-10-23] MED LIST changes: +CEFTIN500 MG PO; +ENDOCET 5-3251 EACH PO
== END | disposition home or self-care (01) ==
LOC: CDC 11:46
DX: Z01.810 Encounter for preprocedural cardiovascular examination (principal); R97.20 Elevated prostate specific antigen [PSA]; I45.10 Unspecified right bundle-branch block; I44.4 Left anterior fascicular block
CPT/HCPCS: 93000

== ENCOUNTER 2018-01-28 00:21 | Inpatient (IN) | payer OTHER, MEDICARE ==
[~2018-01-28] VITALS: Ht 172.7 cm; Wt 47.3 kg
[2018-01-28 01:13] LABS: CHLORIDE 100 mEq/L (99-109); INTER. NORMALIZED RATIO 1.2; POTASSIUM 2.8 mEq/L (3.7-5.4); SODIUM 138 mEq/L (136-147)
[2018-01-28 01:14] LABS: MAGNESIUM 1.8 mg/dL (1.3-2.7)
[2018-01-28 01:15] LABS: GLUCOSE 140 mg/dL (70-99)
[2018-01-28 01:16] LABS: PTT 29.1 SEC (25-37)
[2018-01-28 01:19] LABS: CREATININE 0.8 mg/dL (0.6-1.3); GFR ESTIMATE (CALCULATED) > 59 mL/min/ (58.99-99999)
[2018-01-28 01:20] LABS: UREA NITROGEN (BUN) 29 mg/dL (9-23)
[2018-01-28 01:25] LABS: BASOPHIL (%) 0.2 % (0-1); EOSINOPHIL (%) 0 % (0-5); HEMATOCRIT 32.9 % (38.0-50.0); HEMOGLOBIN 10.6 G/DL (12.5-16.6); IMMATURE GRANULOCYTE (%) 0.6 % (0.0-0.7); LYMPHOCYTE (%) 4.6 % (15-42); LYMPHOCYTE COUNT 0.7 K/uL (1.0-2.8); MCHC 32.2 G/DL (30.0-36.0); MCV 74.4 FL (86-99); MONOCYTE (%) 5.8 % (3-12); MONOCYTE COUNT 0.8 K/uL (0-0.8); NEUTROPHIL (%) 88.8 % (45-76); NEUTROPHIL COUNT 12.8 K/uL (1.8-6.4); PLATELET COUNT 297 K/uL (156-360); RBC DIS.WIDTH-CV 16.5 % (11.8-14.6); RBC DIS.WIDTH-SD 44.6 % (39-53); RED BLOOD COUNT 4.42 M/uL (4.00-5.50); WHITE BLOOD COUNT 14.4 K/uL (4.1-10.2)
[2018-01-28 01:26] LABS: TROP-I INTERPRETATION NEGATIVE; TROPONIN-I 0.02 ng/mL (0.0-0.30)
[2018-01-28 05:32] VITALS: BP 94/50
[2018-01-28 06:45] LABS: BASOPHIL (%) 0.2 % (0-1); EOSINOPHIL (%) 0 % (0-5); HEMATOCRIT 32.3 % (38.0-50.0); HEMOGLOBIN 10.2 G/DL (12.5-16.6); IMMATURE GRANULOCYTE (%) 0.6 % (0.0-0.7); LYMPHOCYTE (%) 3.7 % (15-42); LYMPHOCYTE COUNT 0.7 K/uL (1.0-2.8); MCH 24.1 PG (29.0-34.0); MCHC 31.6 G/DL (30.0-36.0); MCV 76.2 FL (86-99); MONOCYTE (%) 4.6 % (3-12); MONOCYTE COUNT 0.9 K/uL (0-0.8); NEUTROPHIL (%) 90.9 % (45-76); NEUTROPHIL COUNT 17.8 K/uL (1.8-6.4); PLATELET COUNT 275 K/uL (156-360); RBC DIS.WIDTH-CV 16.7 % (11.8-14.6); RED BLOOD COUNT 4.24 M/uL (4.00-5.50); WHITE BLOOD COUNT 19.6 K/uL (4.1-10.2)
[2018-01-28 07:30] LABS: ALKALINE PHOSPHATASE 62 IU/L (3-129); ALT (GPT) 34 IU/L (3-49); AST (GOT) 46 IU/L (2-34); CHLORIDE 100 MEQ/L (99-109); CREATININE 0.7 MG/DL (0.6-1.3); DIRECT BILIRUBIN 0.1 mg/dL (0.0-0.3); GFR ESTIMATE (CALCULATED) > 59 mL/min/ (58.99-99999); GLUCOSE 103 mg/dL (70-99); SODIUM 140 MEQ/L (136-147); TOTAL BILIRUBIN 0.5 MG/DL (0.0-1.0); TOTAL PROTEIN 5.7 G/DL (6.4-8.3); UREA NITROGEN (BUN) 19 mg/dL (9-23)
[2018-01-28 07:55] VITALS: BP 105/68
[2018-01-28] MEDS ORDERED: RANITIDINE HCL150 MG PO (12:05)
[2018-01-28] MEDS ORDERED: CEFTIN500 MG PO (12:07)
[2018-01-28 12:10] VITALS: BP 91/67
[2018-01-28] MEDS ORDERED: DUONEB 2.5-0.5 M3 ML AEROSOL (12:26)
[2018-01-28 16:00] VITALS: BP 83/56
[2018-01-28 19:53] VITALS: BP 91/53
[2018-01-28 23:52] VITALS: BP 91/64
[2018-01-29 03:29] VITALS: BP 115/68
[2018-01-29 06:21] LABS: BASOPHIL (%) 0.2 % (0-1); EOSINOPHIL (%) 0 % (0-5); HEMATOCRIT 29.1 % (38.0-50.0); HEMOGLOBIN 8.9 G/DL (12.5-16.6); IMMATURE GRANULOCYTE (%) 0.7 % (0.0-0.7); LYMPHOCYTE (%) 4.9 % (15-42); LYMPHOCYTE COUNT 0.9 K/uL (1.0-2.8); MCH 23.4 PG (29.0-34.0); MCHC 30.6 G/DL (30.0-36.0); MCV 76.4 FL (86-99); MONOCYTE (%) 3.5 % (3-12); MONOCYTE COUNT 0.6 K/uL (0-0.8); NEUTROPHIL (%) 90.7 % (45-76); NEUTROPHIL COUNT 16.5 K/uL (1.8-6.4); PLATELET COUNT 272 K/uL (156-360); RBC DIS.WIDTH-CV 16.9 % (11.8-14.6); RBC DIS.WIDTH-SD 46.6 % (39-53); RED BLOOD COUNT 3.81 M/uL (4.00-5.50); WHITE BLOOD COUNT 18.2 K/uL (4.1-10.2)
[2018-01-29 06:50] LABS: CHLORIDE 104 MEQ/L (99-109); CREATININE 0.7 MG/DL (0.6-1.3); GFR ESTIMATE (CALCULATED) > 59 mL/min/ (58.99-99999); GLUCOSE 129 mg/dL (70-99); POTASSIUM 3.4 MEQ/L (3.7-5.4); SODIUM 142 MEQ/L (136-147); UREA NITROGEN (BUN) 20 mg/dL (9-23)
[2018-01-29 07:23] VITALS: BP 113/68
[2018-01-29 12:16] VITALS: BP 107/69
[2018-01-29 16:32] VITALS: BP 104/67
[2018-01-29 20:47] VITALS: BP 117/87
[2018-01-29 20:49] LABS: STOOL OCCULT BLD 1ST SPECIMEN POSITIVE
[2018-01-30] VITALS: BP 109/79
[2018-01-30 02:45] LABS: BASOPHIL (%) 0.1 % (0-1); EOSINOPHIL (%) 0.1 % (0-5); HEMATOCRIT 27.3 % (38.0-50.0); HEMOGLOBIN 8.7 G/DL (12.5-16.6); IMMATURE GRANULOCYTE (%) 0.7 % (0.0-0.7); LYMPHOCYTE (%) 10.9 % (15-42); LYMPHOCYTE COUNT 1.7 K/uL (1.0-2.8); MCH 24.2 PG (29.0-34.0); MCHC 31.9 G/DL (30.0-36.0); MONOCYTE (%) 4.4 % (3-12); MONOCYTE COUNT 0.7 K/uL (0-0.8); NEUTROPHIL (%) 83.8 % (45-76); NEUTROPHIL COUNT 12.7 K/uL (1.8-6.4); PLATELET COUNT 260 K/uL (156-360); RBC DIS.WIDTH-CV 16.7 % (11.8-14.6); RBC DIS.WIDTH-SD 46.2 % (39-53); RED BLOOD COUNT 3.59 M/uL (4.00-5.50); WHITE BLOOD COUNT 15.2 K/uL (4.1-10.2)
[2018-01-30 02:58] LABS: ALBUMIN 2.7 g/dL (3.2-4.8)
[2018-01-30 02:59] LABS: CHLORIDE 107 mEq/L (99-109); POTASSIUM 3.3 mEq/L (3.7-5.4); SODIUM 143 mEq/L (136-147)
[2018-01-30 03:04] LABS: PHOSPHORUS 2.9 mg/dL (2.5-4.9)
[2018-01-30 03:05] LABS: CREATININE 0.6 mg/dL (0.6-1.3); GFR ESTIMATE (CALCULATED) > 59 mL/min/ (58.99-99999)
[2018-01-30 03:06] LABS: UREA NITROGEN (BUN) 19 mg/dL (9-23)
[2018-01-30 03:13] LABS: GLUCOSE 90 mg/dL (70-99)
[2018-01-30 03:54] VITALS: BP 128/88
[2018-01-30 07:15] VITALS: BP 136/86
[2018-01-30 11:56] VITALS: BP 131/82
[2018-01-30 12:04] LABS: TROP-I INTERPRETATION NEGATIVE; TROPONIN-I < 0.01 ng/mL (0.0-0.30)
[2018-01-30 14:57] LABS: HEMATOCRIT 31.7 % (38.0-50.0); HEMOGLOBIN 9.8 G/DL (12.5-16.6); MCV 76.6 FL (86-99)
[2018-01-30 17:19] VITALS: BP 95/62
[2018-01-30 20:00] VITALS: BP 110/69
[2018-01-31 01:03] VITALS: BP 115/68
[2018-01-31 04:05] VITALS: BP 114/76
[2018-01-31 06:31] LABS: HEMOGLOBIN 8.9 G/DL (12.5-16.6); MCH 23.4 PG (29.0-34.0); MCHC 30.7 G/DL (30.0-36.0); MCV 76.1 FL (86-99); PLATELET COUNT 318 K/uL (156-360); RBC DIS.WIDTH-CV 16.8 % (11.8-14.6); RBC DIS.WIDTH-SD 45.7 % (39-53); RED BLOOD COUNT 3.81 M/uL (4.00-5.50); WHITE BLOOD COUNT 11.3 K/uL (4.1-10.2)
[2018-01-31 07:56] LABS: CHLORIDE 102 MEQ/L (99-109); CREATININE 0.6 MG/DL (0.6-1.3); GFR ESTIMATE (CALCULATED) > 59 mL/min/ (58.99-99999); GLUCOSE 83 mg/dL (70-99); IRON 17 MCG/DL (35-150); SODIUM 140 MEQ/L (136-147); TRANSFERRIN SATUR. 10 % (20-55); UREA NITROGEN (BUN) 13 mg/dL (9-23)
[2018-01-31 08:00] VITALS: BP 119/82
[2018-01-31] MEDS ORDERED: PANTOPRAZOLE SO40 MG PO (08:02)
[2018-01-31] MEDS ORDERED: AUGMENTIN875 MG PO (08:02)
[2018-01-31] MEDS ORDERED: PREDNISONE20 MG PO (08:02)
[2018-01-31] MEDS ORDERED: MUCINEX600 MG PO (08:02)
[2018-01-31 08:33] LABS: FOLIC ACID (FOLATE) 14.2 NG/ML (5.0-22.0)
[2018-01-31 08:35] LABS: FERRITIN 103 NG/ML (22-322)
[2018-01-31 11:14] VITALS: BP 107/65
[2018-01-31] MEDS ORDERED: LEVAQUIN750 MG PO (12:33)
== END 2018-01-31 15:48 | disposition home or self-care (01) | DRG 177 ==
LOC: EME 00:21 → 5SOUTH 03:45 → EDOF 03:45 → ENRESERV 04:00 → 5SOUTH 05:10 → ENPENDDIS 01-31 15:27 → 5SOUTH 01-31 15:48
PROVIDERS: Emergency Medicine; Hospitalist; Physician Assistant; Physician Assistant Medical
PROC: 0DB68ZX Excision of Stomach, Via Natural or Artificial Opening Endoscopic, Diagnostic (ICD-10-PCS; principal; 2018-01-30)
DX: J69.0 Pneumonitis due to inhalation of food and vomit (principal); J96.21 Acute and chronic respiratory failure with hypoxia; J44.1 Chronic obstructive pulmonary disease with (acute) exacerbation; Z99.81 Dependence on supplemental oxygen; Z86.711 Personal history of pulmonary embolism; E87.6 Hypokalemia; R13.10 Dysphagia, unspecified; D64.9 Anemia, unspecified; R64 Cachexia; I10 Essential (primary) hypertension; K21.9 Gastro-esophageal reflux disease without esophagitis; K25.9 Gastric ulcer, unspecified as acute or chronic, without hemorrhage or perforation; K90.0 Celiac disease; I73.9 Peripheral vascular disease, unspecified
CPT/HCPCS: 71045; 71275; 74220; 74230; 80048; 80048 91; 80069; 80076; 82272; 82607; 82728; 82746; 83540; 83605; 83735; 84466; 84484; 85014; 85018; 85025; 85025 91; 85027; 85610; 85730; 86850; 86900; 86901; 87040; 87070; 87205; 87449; 87493; 87641; 88305; 88342 TC; 92526 GN; 92610 GN; 92611 GN; 93005; 94640; 94640 76; 94760; 94799; 99202; 99281; 99285; J0456; J1650; J1956; J2543; J2920; J2930; J3480; J7030; J7040; J7050; J7512; Q0169

== ENCOUNTER → 2018-02-12 | Outpatient (CLI) | payer OTHER, MEDICARE ==
[~2018-02-12] VITALS: Ht 172.7 cm; Wt 50.4 kg
[~2018-02-12] MED LIST changes: +MUCINEX600 MG PO; +PANTOPRAZOLE SO40 MG PO; +PREDNISONE20 MG PO; +RANITIDINE HCL150 MG PO
== END | disposition home or self-care (01) ==
LOC: AMB 14:30
DX: R04.2 Hemoptysis (principal); J47.9 Bronchiectasis, uncomplicated; G47.33 Obstructive sleep apnea (adult) (pediatric); Z87.891 Personal history of nicotine dependence; Z88.5 Allergy status to narcotic agent; E78.5 Hyperlipidemia, unspecified; I10 Essential (primary) hypertension
CPT/HCPCS: 87070; 87116; 87205; 87206; 88108; J2250